=== PATIENT | female | born 1975 | race Caucasian/White ===

== ENCOUNTER → 2021-04-05 09:59 | Outpatient (CLI) | payer OTHER | END | disposition home or self-care (01) | LOC: D.MRI 09:59 | PROVIDERS: ATTEND Clinical Nurse Specialist Family Health | DX: M25.561 Pain in right knee (principal) ==

== ENCOUNTER 2021-04-27 09:30 | Outpatient (CLI) | payer OTHER | END 2021-04-27 23:59 | disposition home or self-care (01) | LOC: D.MAMMO 09:30 | PROVIDERS: ATTEND Obstetrics & Gynecology | DX: R92.8 Other abnormal and inconclusive findings on diagnostic imaging of breast (principal) ==